=== PATIENT | male | born 1995 | race African-American/Black ===

== ENCOUNTER 2017-08-02 22:18 | Emergency (ER) | payer MEDICAID, OTHER ==
[2017-08-02] MEDS: HYDROCODONE/APAP (5/325) TAB PO (23:57)
[2017-08-02] MEDS: LIDOCAINE 1%/EPI 30 ML INJ INJ (23:57)
== END 2017-08-03 03:08 | disposition home or self-care (01) ==
LOC: FTE 22:18
DX: S61.412A Laceration without foreign body of left hand, initial encounter (principal); S09.90XA Unspecified injury of head, initial encounter; Y08.89XA Assault by other specified means, initial encounter; Y92.26 Movie house or cinema as the place of occurrence of the external cause
CPT/HCPCS: 12001; 70450; 73080-RT; 73090-RT; 99284-25